=== PATIENT | female | born 1970 | race Two or more races ===

== ENCOUNTER → 2024-01-30 | Outpatient (CLI) | payer OTHER, SELFPAY ==
[2024-01-30 08:41] LABS: Basophils % (Auto) 0 % (0-2.5); Eosinophils # (Auto) 0.1 Thou/mm3 (0.0-0.5); Eosinophils % (Auto) 2 % (0-10); Hematocrit 39.9 % (36.0-46.0); Immature Granulocytes % (Auto) 1 % (0-0); Immature Granulocytes Auto 0.02 Thou/mm3 (0.00-0.00); Lymphocytes # (Auto) 0.4 Thou/mm3 (1.0-4.8); Lymphocytes % (Auto) 10 % (10-50); Mean Corpuscular HGB Conc 32.6 g/dl (31.0-37.0); Mean Corpuscular Volume 98 fL (80-100); Monocytes # (Auto) 0.4 Thou/mm3 (0.0-0.8); Monocytes % (Auto) 10 % (0-12); Neutrophils # (Auto) 2.7 Thou/mm3 (1.8-7.7); Neutrophils % (Auto) 76 % (37-80); Nucleated Red Blood Cell % 0 /100 WBC (0); Platelet Count 307 Thou/mm3 (140-440); RDW Standard Deviation 46.6 fL (36.4-46.3); Red Blood Count 4.06 Miln/mm3 (4.00-5.20); White Blood Count 3.5 Thou/mm3 (3.6-11.0)
[2024-01-30 09:03] LABS: T4 (Thyroxine) 4.7 mcg/dL (4.5-10.9)
[2024-01-30 09:05] LABS: Alanine Aminotransferase 57 U/L (10-49); Albumin, Serum 4.6 gm/dL (3.5-5.0); Albumin/Globulin Ratio 2.7 (1.2-2.2); Alkaline Phosphatase 123 U/L (46-116); Anion Gap 7 (7-16); Aspartate Amino Transferase 19 U/L (0-34); BUN/Creatinine Ratio 20 Ratio (12-20); Bilirubin,Total 0.4 mg/dL (0.3-1.2); Blood Urea Nitrogen 16 mg/dL (9-23); Calcium 9.6 mg/dL (8.3-10.6); Calcium (Corrected) 9.6 mg/dL (8.5-10.1); Carbon Dioxide 29.7 mMol/L (20.0-31.0); Cardiac Risk Estimate 3.3 RATIO (3.7-5.6); Chloride 106 mMol/L (98-107); Cholesterol 214 mg/dL (132-200); Creatinine (Component) 0.8 mg/dL (0.6-1.3); Globulin 1.7 gm/dL (2.3-3.5); Glucose 113 mg/dL (74-106); HDL Cholesterol 64 mg/dL (40-60); LDL Cholesterol,Calculated 128 mg/dL (0-130); Osmolality,Calculated 287 (275-295); Potassium 4.4 mMol/L (3.4-5.1); Sodium 143 mMol/L (136-145); Thyroid Stimulating Hormone 2.97 uIU/mL (0.55-4.78); Total Protein 6.3 gm/dL (5.7-8.2); Triglycerides 108 mg/dL (30-150); eGFR > 60 See Note
== END | disposition home or self-care (01) ==
LOC: COPL 07:03
PROVIDERS: PCP Family Medicine; Referring Provider Family Medicine; Visit Provider Family Medicine
DX: G35 Multiple sclerosis (principal); E03.9 Hypothyroidism, unspecified; E78.2 Mixed hyperlipidemia; R79.9 Abnormal finding of blood chemistry, unspecified
CPT/HCPCS: 36415; 80053; 80061; 84436; 84443; 85025

== ENCOUNTER → 2024-01-30 | Outpatient (CLI) | payer BC, OTHER, SELFPAY ==
[2024-01-30 11:32] LABS: Glucose Estimated Average 100 mg/dL (80-131); Hemoglobin A1C 5.1 % Hgb (4.8-6.0)
== END | disposition home or self-care (01) ==
LOC: COPL 10:27
PROVIDERS: PCP Family Medicine; Referring Provider Family Medicine; Visit Provider Family Medicine
DX: R73.01 Impaired fasting glucose (principal)
CPT/HCPCS: 36415; 83036

== ENCOUNTER 2024-04-25 04:49 | Emergency (ER) | payer BC, OTHER, SELFPAY ==
[2024-04-25 04:55] VITALS: BP 137/82; PULSE 73; RESP 20; TEMP 36.9; O2SAT 98
--- NOTE | 2024-04-25 04:58 | EKG_ITS ---
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
--- NOTE | 2024-04-25 05:12 | XR_ITS ---
Examination: Upright PA chest single view Technique: Upright PA chest single view Exam date and time: April 25, 2024 0518 hrs. Indications: Shortness of breath one week. Findings: Normal heart size Lungs are clear. The osseous structures are intact Impression: No active disease
--- NOTE | 2024-04-25 05:12 | XR_ITS ---
Examination: Abdomen sonogram, Limited Date and time of exam: April 25, 2024 0625 hrs. Indications: Onset epigastric pain and nausea today Technique: Real-time suarez scale transabdominal sonographic images of the upper abdomen obtained. Findings: 16 mm gallstone Gallbladder wall 0.3 cm Common bile duct 0.3 cm Pancreatic head 2.4 cm Liver 18.4 cm smooth contour no focal liver lesions Normal hepatopedal portal venous flow Patent IVC Impression: Cholelithiasis, negative for cholecystitis Moderate hepatomegaly
--- NOTE | 2024-04-25 05:13 | PD.EDRME ---
Rapid Medical Screening Exam [facility] Arrival date/time: 04/25/24 04:49 53F with history of MS and depression presents to ED with several weeks of intermittent RUE pain and CP w/o fall/trauma. Separately, patient has 1 day of RUQ/epigastric pain, N/V, and some SOB. Patient also has a slight cough. Patient denies RUE swelling. Chief Complaint: Shortness of Breath/Dyspnea Vital signs: Vital Signs Temperature 98.4 F 04/25/24 04:55 Pulse Rate 73 04/25/24 04:55 Respiratory Rate 20 04/25/24 04:55 Blood Pressure 137/82 H 04/25/24 04:55 Pulse Oximetry (%) 98 04/25/24 04:55 Oxygen Delivery Method Room Air 04/25/24 04:55
[2024-04-25] MEDS: ONDANSETRON ODT 4 MG TABRAP PO (05:52)
[2024-04-25 05:53] LABS: Collection Type, Urine Clean Catch; RBC,Urine 0 /hpf (0-3); WBC,Urine 0 /hpf (0-5)
[2024-04-25 06:13] LABS: Bacteria,Urine Rare; Bilirubin,Urine Negative (Negative); Blood,Urine Negative (Negative); Clarity,Urine Clear (Clear/Hazy); Color,Urine Yellow (Lt Yel-Yel); Culture Indicated,Urine Not Indicated; Glucose, Urine Negative (Negative); Ketones,Urine Negative (Negative); Leukocyte Esterase,Urine Negative (Negative); Nitrite,Urine Negative (Negative); PH,Urine 8.5 (5.0-7.0); Protein,Urine Trace (Neg - Trace); Specific Gravity,Urine 1.018 (1.001-1.035); Squamous Epithelial Cell,Urine 2 /hpf (0-5); Urobilinogen,Urine Negative mg/dL (0.0-1.0)
[2024-04-25 06:14] LABS: HCG Qualitative,Urine Negative
[2024-04-25 06:17] LABS: Basophils % (Auto) 0 % (0-2.5); Eosinophils # (Auto) 0.1 Thou/mm3 (0.0-0.5); Eosinophils % (Auto) 1 % (0-10); Hematocrit 38.9 % (36.0-46.0); Hemoglobin 13.4 g/dL (12.0-16.0); Immature Granulocytes % (Auto) 0 % (0-0); Immature Granulocytes Auto 0.02 Thou/mm3 (0.00-0.00); Lymphocytes # (Auto) 0.3 Thou/mm3 (1.0-4.8); Lymphocytes % (Auto) 6 % (10-50); Mean Corpuscular HGB Conc 34.4 g/dl (31.0-37.0); Mean Corpuscular Hemoglobin 32.3 pg (25.0-35.0); Mean Corpuscular Volume 94 fL (80-100); Monocytes # (Auto) 0.4 Thou/mm3 (0.0-0.8); Monocytes % (Auto) 8 % (0-12); Neutrophils # (Auto) 4.1 Thou/mm3 (1.8-7.7); Neutrophils % (Auto) 84 % (37-80); Nucleated Red Blood Cell % 0 /100 WBC (0); Platelet Count 299 Thou/mm3 (140-440); RDW Standard Deviation 43.8 fL (36.4-46.3); Red Blood Count 4.15 Miln/mm3 (4.00-5.20); White Blood Count 4.9 Thou/mm3 (3.6-11.0)
[2024-04-25 06:36] LABS: Amphetamine/Methamp Scrn,U Negative (Negative); Barbiturate Screen,Urine Negative (Negative); Benzodiazepines Screen,Urine Negative (Negative); Benzoylecgonine Screen, Ur Negative (Negative); Fentanyl Screen,Urine Negative (Negative); Opiate Screen,Urine Negative (Negative); THC Screen,Urine Negative (Negative)
[2024-04-25 06:40] LABS: Alanine Aminotransferase 32 U/L (10-49); Albumin, Serum 4.4 gm/dL (3.5-5.0); Albumin/Globulin Ratio 2.1 (1.2-2.2); Alkaline Phosphatase 101 U/L (46-116); Anion Gap 8 (7-16); Aspartate Amino Transferase 16 U/L (0-34); BUN/Creatinine Ratio 16 Ratio (12-20); Bilirubin,Total 0.5 mg/dL (0.3-1.2); Blood Urea Nitrogen 11 mg/dL (9-23); Calcium 9.7 mg/dL (8.3-10.6); Calcium (Corrected) 9.7 mg/dL (8.5-10.1); Carbon Dioxide 29.4 mMol/L (20.0-31.0); Chloride 105 mMol/L (98-107); Creatinine (Component) 0.7 mg/dL (0.6-1.3); Globulin 2.1 gm/dL (2.3-3.5); Glucose 127 mg/dL (74-106); Lipase 29 U/L (12-53); Osmolality,Calculated 284 (275-295); Potassium 3.9 mMol/L (3.4-5.1); Sodium 142 mMol/L (136-145); Total Protein 6.5 gm/dL (5.7-8.2); Troponin I < 0.002 ng/mL (0.0-0.045); eGFR > 60 See Note
[2024-04-25 07:25] VITALS: BP 127/77; PULSE 67; RESP 18; TEMP 36.5; O2SAT 97
--- NOTE | 2024-04-25 07:34 | PD.EDABDPN ---
ED Abdominal Pain RME/HPI General Chief Complaint: Shortness of Breath/Dyspnea Stated complaint: SOB, stomach ache nausea, dizzines Time seen by provider: 04/25/24 07:00 Arrival date/time: 04/25/24 0600 This is a 53-year-old female history of MS and depression presents to the emergency department with complaints of upper abdominal pain associated with mild nausea. Reports when the abdominal pain started she began experiencing mild dizziness and shortness of breath. She is unaware if she was having a mild exacerbation of her MS. Denies fever, chills rigors no nausea no vomiting no BRBPR. Source: patient Limitations: no limitations RME / HPI RME / HPI narrative: 04/25/24 04:49 53F with history of MS and depression presents to ED with several weeks of intermittent RUE pain and CP w/o fall/trauma. Separately, patient has 1 day of RUQ/epigastric pain, N/V, and some SOB. Patient also has a slight cough. Patient denies RUE swelling. Related Data Home Medications ?Medication ?Instructions ?Recorded ?Confirmed baclofen 20 mg tablet 20 mg PO BID multiple sclerosis #0 10/26/15 04/11/22 tabs carbamazepine 200 mg tablet 200 mg PO BID #0 tabs 10/26/15 04/11/22 (Tegretol) fingolimod 0.5 mg capsule (Gilenya) 0.5 cap PO HS ##0 10/26/15 04/11/22 atorvastatin 20 mg tablet 20 mg PO QDAY 04/06/22 04/11/22 bupropion HCl 150 mg 24 hr tablet, 150 mg PO QAM 04/06/22 04/11/22 extended release bupropion HCl 300 mg 24 hr tablet, 300 mg PO QAM 04/06/22 04/11/22 extended release conj estrogen-medroxyprogesterone 1 tab PO QDAY 04/06/22 04/11/22 0.3 mg-1.5 mg tablet (Prempro) linaclotide 290 mcg capsule 290 mcg PO QDAY 04/06/22 04/11/22 (Linzess) oxybutynin chloride 5 mg tablet 5 mg PO BID 04/06/22 04/11/22 Previous Rx's ?Medication ?Instructions ?Recorded ibuprofen 600 mg tablet 600 mg PO Q6H PRN pain #30 tabs 04/06/22 tamsulosin 0.4 mg capsule (Flomax) 0.4 mg PO QDAY #30 caps 04/06/22 Allergies Allergy/AdvReac Type Severity Reaction Status Date / Time No Known Allergies Allergy Verified 12/07/22 13:51 Review of Systems Review of Systems Systems Reviewed: All systems reviewed, normal except as documented Narrative Review of Systems: Gen: No fever, no chills, no weight loss EYES: No discharge, no visual changes, no pain HEENT: No ear pain, no congestion, no sore throat PULM: Mild shortness of breath, no cough, no congestion CV: Mild chest pain, no dyspnea on exertion, no palpitations GI: + nausea, no vomiting, no diarrhea, + epigastric pain, no constipation : No frequency, no urgency,? no dysuria Musc/skel: No joint pain, no back pain Skin: No rash? Psyc: No hallucinations, no depression Heme/Lymph: No easy bleeding or bruising tendencies Neuro: No weakness, no headache ED Exam Narrative Physical exam: 53-year-old female sitting up in [facility] in no apparent distress. General Limitations: Present no limitations General appearance: Present alert and in no apparent distress Head Head exam: Present atraumatic Eye Eye exam: Present normal appearance, PERRL and EOMI ENT ENT exam: Present normal exam, normal oropharynx and mucous membranes moist Neck Neck exam: Present normal inspection, full ROM and trachea midline Chest Chest inspection: Present normal inspection and symmetric chest wall rise Respiratory Respiratory exam: Present normal lung sounds bilaterally Cardiovascular Cardiovascular exam: Present regular rate, normal rhythm and normal heart sounds Abdominal Exam Abdominal exam: Present soft and normal bowel sounds Extremities Exam Extremities exam: Present normal inspection and full ROM Back Exam Back exam: Present normal inspection and full ROM Neurological Exam Neurological exam: Present alert, oriented X3 and CN II-XII intact Psychiatric Psychiatric exam: Present normal affect and normal mood Skin Skin exam: Present warm, dry, intact and normal color Course Quality Measures none Orders Category Date Time Status Bedside COVID-19 Antigen Test NOW Care 04/25/24 05:17 Active Bedside Influenza A&B Antigen Test NOW Care 04/25/24 05:17 Active EKG (ED ONLY) *Do not use* NOW Care 04/25/24 04:58 Completed EKG (ED Only) Stat Exams 04/25/24 04:58 Draft US gall bladder Stat Exams 04/25/24 05:12 Completed XR chest 1V portable Stat Exams 04/25/24 05:12 Completed CBC Stat Lab 04/25/24 06:00 Completed CMP [Comprehensive Metabolic Panel] Stat Lab 04/25/24 06:00 Completed Drug Screen,Urine Stat Lab 04/25/24 05:47 Completed HCG Qualitative,Urine Stat Lab 04/25/24 05:47 Completed Lipase Stat Lab 04/25/24 06:00 Completed Troponin I Stat Lab 04/25/24 06:00 Completed Urinalysis, C/S if Indicated Stat Lab 04/25/24 05:47 Completed Ondansetron Odt [Zofran Odt] Med 04/25/24 05:12 Discontinued 4 mg PO X1 ONE Vital Signs Vital signs: Vital Signs Temperature 98.4 F 04/25/24 04:55 Pulse Rate 73 04/25/24 04:55 Respiratory Rate 20 04/25/24 04:55 Blood Pressure 137/82 H 04/25/24 04:55 Pulse Oximetry (%) 98 04/25/24 04:55 Oxygen Delivery Method Room Air 04/25/24 04:55 Abdominal Pain MDM MDM Narrative MDM Narrative:: This is a 53-year-old female presents to the emergency department with multiple complaints. Mainly having upper abdominal pain with mild nausea which led to have some mild shortness of breath and chest pain. Previous provider ordered general labs, chest x-ray, EKG. Which all were reassuring. No signs of acute leukocytosis, anemia. CMP reassuring no electrolyte imbalance no acute renal failure. No transaminitis T. bili normal. Chest x-ray normal. Troponin negative. Patient was given 1 Zofran prior to my reevaluation. Patient sitting up in [place] in no acute distress reports improving tremendously no abdominal pain. Patient is seen to the Emergency Department and evaluated.Patient is stable for discharge no anemia, no sepsis, no infection, will DC with pain control, and follow-up with on outpatient basis. There is no acute reason that warrant admission patient at this time Patient appears non-toxic and VSS, Taking PO fluids. No tachycardia out of proportion, no tachypnea, no dyspnea/SOB. Will Discharge patient home with close follow up with PMD. Patient informed about red flags regarding a possible need to seek medical attention. Patient data External records reviewed:: [facility] previous records Clinical information provided by:: patient Social determinants that could affect healthcare access:: none Patient has the following chronic illnesses:: MS, depression, chronic pain, constipation, hyperlipidemia, How is presenting disease/condition affected by chronic disease/condition?: exacerbated by Evaluation data The following diagnostics were reviewed and interpreted by me:: lab results, radiology exam(s) and EKG tracing(s) Lab and/or radiology exams considered but not ordered:: No Interpretation Summary: See above Examination: Abdomen sonogram, Limited Date and time of exam: April 25, 2024 0625 hrs. Indications: Onset epigastric pain and nausea today Technique: Real-time suarez scale transabdominal sonographic images of the upper abdomen obtained. Findings: 16 mm gallstone Gallbladder wall 0.3 cm Common bile duct 0.3 cm Pancreatic head 2.4 cm Liver 18.4 cm smooth contour no focal liver lesions Normal hepatopedal portal venous flow Patent IVC Impression: Cholelithiasis, negative for cholecystitis Moderate hepatomegaly Examination: Upright PA chest single view Technique: Upright PA chest single view Exam date and time: April 25, 2024 0518 hrs. Indications: Shortness of breath one week. Findings: Normal heart size Lungs are clear. The osseous structures are intact Impression: No active disease Medications / Prescriptions Medications or Prescriptions considered but not ordered:: No Medication administrations:: Medication Administration History Discontinued Medications Ondansetron HCl (Ondansetron Odt 4 Mg Tabrap) 4 mg PO X1 ONE; Protocol Stop: 04/25/24 05:13 Last Admin: 04/25/24 05:52 Dose: 4 mg Documented By: SF All medications administered and effective Consultations Consultation(s) initiated? (list below): No Diagnosis Differential diagnosis abdominal pain: abdominal pain, calculus of kidney, constipation, gastroenteritis, pancreatitis and other (Pneumonia, URI, chest pain) Most likely diagnosis given after review of the tests above:: Cholelithiasis, Admission Indicated Admission indicated?: not indicated Admission Request Was there a request for admission?: No Disposition Plan Disposition Plan: Discharge Discharge Attestation Discharge Attestation: The patient and all family members were given an opportunity to ask questions and understood the discharge instructions. Discharge instructions specifically effects, indications for sooner follow up or return to the emergency department, and the expected course of current diagnosis. Patient condition: Stable Discharge Plan Plan Patient Disposition: HOME (Self Care) Patient condition on transfer: Stable Prescriptions/Referrals Prescriptions/Med Rec: No Action baclofen 20 MG tablet 20 mg PO BID Qty: 0 carbamazepine [Tegretol] 200 MG tablet 200 mg PO BID Qty: 0 fingolimod [Gilenya] 0.5 MG capsule 0.5 cap PO HS Qty: 0 atorvastatin 20 mg tablet 20 mg PO QDAY Patient Comments: TAKE 1 TABLET BY MOUTH EVERY DAY FOR 90 DAYS 90 DAYS oxybutynin chloride 5 mg tablet 5 mg PO BID Patient Comments: TAKE 1 TABLET BY MOUTH TWICE A DAY bupropion HCl 300 mg tablet extended release 24 hr 300 mg PO QAM Patient Comments: TAKE 1 TABLET BY MOUTH EVERY DAY IN THE MORNING bupropion HCl 150 mg tablet extended release 24 hr 150 mg PO QAM Patient Comments: TAKE 1 TABLET BY MOUTH EVERY DAY IN THE MORNING Prempro 0.3-1.5 mg tablet 1 tab PO QDAY Patient Comments: TAKE 1 TABLET BY MOUTH EVERY DAY Linzess 290 mcg capsule 290 mcg PO QDAY Patient Comments: TAKE 1 CAPSULE BY MOUTH AT LEAST 30 MINUTES BEFORE THE FIRST MEAL OF THE DAY IN EMPTY STOMACH ibuprofen 600 mg tablet 600 mg PO Q6H PRN (Reason: pain) Qty: 30 0RF tamsulosin [Flomax] 0.4 mg capsule 0.4 mg PO QDAY Qty: 30 0RF Referrals: Virgil Tavares MD [Primary Care Provider] - In 1 week Problem List Clinical Impression: Cholelithiasis Patient/Caregiver Discharge Instructions Discharge Activity: activity as tolerated Education Materials: ED Gallstones with Biliary Colic Additional Instructions: It is very important that you follow-up with your primary doctor in 2 days.. Increase water intake. You do have a gallstone. You need to make sure you do not eat fried food, fried eggs. You might need a outpatient general surgery referral if the pain worsens. Return to the emergency department is any worsening symptoms change in condition Print Language: Slovak Stand Alone Forms: Gloria Award Info., Patient Portal Info Letter PA/STUDIO OPERATOR Supervising Physician YANIRA/CAPRICE Supervising Physician: Dr Uribe
== END 2024-04-25 07:45 | disposition home or self-care (01) ==
PROVIDERS: Physician Assistant; Emergency Provider Emergency Medicine; PCP Family Medicine
DX: K80.20 Calculus of gallbladder without cholecystitis without obstruction (principal); R16.0 Hepatomegaly, not elsewhere classified; R06.02 Shortness of breath
CPT/HCPCS: 36415; 71045; 76705; 80053; 80307; 81001; 81025; 83690; 84484; 85025; 93005; 99284; Q0162

== ENCOUNTER 2024-06-02 03:27 | Emergency (ER) | payer BC, OTHER, SELFPAY ==
[2024-06-02 03:28] VITALS: BMI 27.4
--- NOTE | 2024-06-02 03:32 | EKG_ITS ---
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
--- NOTE | 2024-06-02 03:33 | PD.EDRME ---
Rapid Medical Screening Exam RME Arrival date/time: 06/02/24 03:27 54 year old female present to ED for c/o n/v/d, recent return from [place] I have greeted and performed a focused initial assessment of this patient. A comprehensive ED assessment and evaluation of the patient, analysis of all test results, and completion of the medical decision making process will be conducted by additional ED providers. Chief Complaint: Nausea/Vomiting/Diarrhea Time Seen by Provider: 06/02/24 03:32
[2024-06-02 03:43] VITALS: BP 137/67; PULSE 79; RESP 19; TEMP 36.6; O2SAT 98
[2024-06-02] MEDS: ONDANSETRON ODT 4 MG TABRAP PO (03:53)
--- NOTE | 2024-06-02 04:42 | PC.NURSE ---
Initial contact with pt. Brought to [facility] #6 via w/c with c/o n/v/d. Son and mom has same symptoms.
[2024-06-02 04:44] VITALS: BP 136/68; PULSE 77; RESP 22; TEMP 36.6; O2SAT 100
[2024-06-02 04:45] LABS: Basophils % (Auto) 0 % (0-2.5); Eosinophils % (Auto) 0 % (0-10); Hematocrit 42.5 % (36.0-46.0); Hemoglobin 14.7 g/dL (12.0-16.0); Immature Granulocytes % (Auto) 0 % (0-0); Immature Granulocytes Auto 0.04 Thou/mm3 (0.00-0.00); Lymphocytes # (Auto) 0.3 Thou/mm3 (1.0-4.8); Lymphocytes % (Auto) 3 % (10-50); Mean Corpuscular HGB Conc 34.6 g/dl (31.0-37.0); Mean Corpuscular Hemoglobin 32.7 pg (25.0-35.0); Mean Corpuscular Volume 94 fL (80-100); Monocytes # (Auto) 0.3 Thou/mm3 (0.0-0.8); Monocytes % (Auto) 3 % (0-12); Neutrophils # (Auto) 9.3 Thou/mm3 (1.8-7.7); Neutrophils % (Auto) 93 % (37-80); Nucleated Red Blood Cell % 0 /100 WBC (0); Platelet Count 332 Thou/mm3 (140-440); RDW Standard Deviation 44.1 fL (36.4-46.3); White Blood Count 9.9 Thou/mm3 (3.6-11.0)
[2024-06-02 05:16] LABS: Alanine Aminotransferase 82 U/L (10-49); Albumin/Globulin Ratio 2.3 (1.2-2.2); Alkaline Phosphatase 107 U/L (46-116); Anion Gap 10 (7-16); Aspartate Amino Transferase 65 U/L (0-34); BUN/Creatinine Ratio 17 Ratio (12-20); Bilirubin,Total 0.7 mg/dL (0.3-1.2); Blood Urea Nitrogen 17 mg/dL (9-23); Carbon Dioxide 27.2 mMol/L (20.0-31.0); Chloride 108 mMol/L (98-107); Estimated Creatinine Clearance 62.8 mL/min (>60); Globulin 2.2 gm/dL (2.3-3.5); Glucose 141 mg/dL (74-106); Lipase 35 U/L (12-53); Osmolality,Calculated 292 (275-295); Potassium 3.8 mMol/L (3.4-5.1); Sodium 145 mMol/L (136-145); Total Protein 7.2 gm/dL (5.7-8.2); Troponin I < 0.002 ng/mL (0.0-0.045); eGFR > 60 See Note
[2024-06-02] MEDS: SODIUM CHLORIDE 0.9% 1000 ML 1,000 ML 999 ML IV ×2 (05:17→07:29)
[2024-06-02] MEDS: ONDANSETRON INJ 2 MG/ML INJ 2 ML 4 MG IV (05:17)
[2024-06-02 06:00] VITALS: BP 143/69; PULSE 81; RESP 24; O2SAT 100
--- NOTE | 2024-06-02 06:36 | EDNOTE_ITS ---
Nausea/Vomit./Diarrhea-RME/HPI General Chief complaint: Nausea/Vomiting/Diarrhea Stated complaint: N/V, DIARRHEA Time Seen by Provider: 06/02/24 03:32 Arrival date/time: 06/02/24 03:27 RME / HPI RME / HPI Narrative: 06/02/24 03:27 54 year old female present to ED for c/o n/v/d, recent return [place] I have greeted and performed a focused initial assessment of this patient. A comprehensive ED assessment and evaluation of the patient, analysis of all test results, and completion of the medical decision making process will be conducted by additional ED providers. DR. IBARRA MAIN ED EVALUATION: 54 year female with past medical history significant for MS and depression presents to the Emergency Department with complaints of nausea, vomiting and diarrhea onset yesterday afternoon. Symptoms are mild to moderate. Patient also complains of associated abdominal pain when vomiting. No chest pain, fevers, chills, dysuria, or other symptoms at this time. Patient denies any tobacco, alcohol, or substance use. Related Data Home Medications ?Medication ?Instructions ?Recorded ?Confirmed baclofen 20 mg tablet 20 mg PO BID multiple sclero sis #0 10/26/15 04/11/22 tabs carbamazepine 200 mg tablet 200 mg PO BID #0 tabs 10/0504/11/22 (Tegretol) fingolimod 0.5 mg capsule (Gilenya) 0.5 cap PO HS ##0 10/26/15 04/11/22 atorvastatin 20 mg tablet 20 mg PO QDAY 04/06/2204/11 bupropion HCl 150 mg 24 hr tablet, 150 mg PO QAM 04/0604/11/22 extended release bupropion HCl 300 mg 24 hr tablet, 300 mg PO QAM 04/0604/11/22 extended release conj estrogen-medroxyprogesterone 1 tab PO QDAY 04/11/22 0.3 mg-1.5 mg tablet (Prempro) linaclotide 290 mcg capsule 290 mcg PO QDAY 04/06/22 0 04/11/22 (Linzess) oxybutynin chloride 5 mg tablet 5 mg PO BID 04/06/22 0 04/11/22 Previous Rx's ?Medication ?Instructions ?Recorded ibuprofen 600 mg tablet 600 mg PO Q6H PRN pain #30 t abs 04/06/22 tamsulosin 0.4 mg capsule (Flomax) 0.4 mg PO QDAY #30 caps 04/06/22 Allergies Allergy/AdvReac Type Severity Reaction Status Date / Time No Known Allergies Allergy Verified 12/07/22 13:51 Review of Systems Review of Systems Systems Reviewed: All systems reviewed, normal except as documented Past Medical History Past Medical History NEUROLOGIC: Positive Neurological Disorders and Multiple Sclerosis RESPIRATORY: Positive Pneumonia Surgical History SURGICAL: Positive Section Social History SMOKING STATUS: Never smoker SUBSTANCE USE: does not use ALCOHOL: Never ED Exam Narrative Physical exam: GENERAL APPEARANCE: alert and oriented x 4, well-developed, well-nourished, no acute distress VITALS: All vitals were reviewed and the pulse ox is 99% on room air, which is normal according to my interpretation. HEENT: Normocephalic, atraumatic; pupils equal, round, reactive to light; EOMI; mucous membranes pink, moist; oropharynx clear NECK: Supple LUNGS: CTABL; no wheezes, no rales, no rhonchi HEART: Regular rate, regular rhythm; normal S1, S2; no murmurs ABDOMEN: non distended; normal BS; soft, no tenderness, no guarding, no rebound; no masses, no organomegaly, no hernia BACK: no CVA tenderness EXTREMITIES: atraumatic; no edema NEUROLOGIC: awake; alert and oriented x4; cranial nerves II-XII grossly intact; no focal sensory or motor deficits PSYCHIATRIC: appropriate mood and affect SKIN: warm, dry, normal color; no rashes Course Quality Measures none Orders Category Date Time Status EKG (ED ONLY) *Do not use* NOW Care 06/02/24 03:32 Completed IV [Insert IV] STAT Care 06/02/24 03:32 Completed EKG (ED Only) Stat Exams 06/02/24 03:32 Ordered CBC Stat Lab 06/02/24 04:20 Completed CMP [Comprehensive Metabolic Panel] Stat Lab 06/02/24 04:20 Completed Lipase Stat Lab 06/02/24 04:20 Completed Troponin I Stat Lab 06/02/24 04:20 Completed UA [Urinalysis] Stat Lab 06/02/24 06:45 Completed LORazepam [Ativan Inj] Med 06/02/24 06:51 Discontinued 1 mg IVP X1 ONE Morphine Inj Med 06/02/24 06:51 Discontinued 5 mg IVP X1 ONE Ondansetron Inj [Zofran Inj] Med 06/02/24 03:32 Discontinued 4 mg IV X1 ONE Ondansetron Odt [Zofran Odt] Med 06/02/24 03:35 Discontinued 4 mg PO X1 ONE Sodium Chloride 0.9% 1000 ml [Ns] 1,000 ml Med 06/02/24 03:32 Discontinued IV 999 mls/hr Sodium Chloride 0.9% 1000 ml [Ns] 1,000 ml Med 06/02/24 06:51 Discontinued IV 999 mls/hr Vital Signs Vital signs: Vital Signs Temperature 97.8 F 06/02/24 03:43 Pulse Rate 79 06/02/24 03:43 Respiratory Rate 19 06/02/24 03:43 Blood Pressure 137/67 H 06/02/24 03:43 Pulse Oximetry (%) 98 06/02/24 03:43 Oxygen Delivery Method Room Air 06/02/24 03:43 Nausea/Vomiting/Diarrhea MDM Narrative MDM Narrative:: Julia Montiel am scribing for and in the presence of Dr. Ibarra. Patient data External records reviewed:: [facility] previous records (Reviewed last ED visit dated 04/25/24, discharged with the following: Cholelithiasis) Clinical information provided by:: patient Social determinants that could affect healthcare access:: none Patient has the following chronic illnesses:: MS and depression How is presenting disease/condition affected by chronic disease/condition?: uneffected by Evaluation data The following diagnostics were reviewed and interpreted by me:: lab results Lab and/or radiology exams considered but not ordered:: none Interpretation Summary: No acute findings. Medications / Prescriptions Medications / Prescriptions considered but not ordered:: none Medication administrations:: Medication Administration History Discontinued Medications Sodium Chloride (Ns) 1,000 mls @ 999 mls/hr IV .Q1H1M ONE Stop: 06/02/24 04:32 Last Infusion: 06/02/24 07:33 Dose: Infused Documented By: Admin: 06/02/24 05:17 Dose: 999 mls/hr Documented By: GERARDO Sodium Chloride (Ns) 1,000 mls @ 999 mls/hr IV .Q1H1M ONE Stop: 06/02/24 07:51 Last Infusion: 06/02/24 08:39 Dose: Infused Documented By: Admin: 06/02/24 07:29 Dose: 999 mls/hr Documented By: ALISA Lorazepam (Lorazepam 2 Mg/Ml Vial) 1 mg IVP X1 ONE Stop: 06/02/24 06:52 Last Admin: 06/02/24 07:30 Dose: 1 mg Documented By: DB Morphine Sulfate (Morphine Sulf Inj 10 Mg/Ml Vial) 5 mg IVP X1 ONE Stop: 06/02/24 06:52 Last Admin: 06/02/24 07:32 Dose: 5 mg Documented By: ALISA Ondansetron HCl (Ondansetron Inj 2 Mg/Ml Inj 2 Ml) 4 mg IV X1 ONE; Protocol Stop: 06/02/24 03:33 Last Admin: 06/02/24 05:17 Dose: 4 mg Documented By: GERARDO Ondansetron HCl (Ondansetron Odt 4 Mg Tabrap) 4 mg PO X1 ONE; Protocol Stop: 06/02/24 03:36 Last Admin: 06/02/24 03:53 Dose: 4 mg Documented By: MARIO see above Consultations Consultation(s) initiated? (list below): No Diagnosis Nausea Differential Diagnosis: traveler's diarrhea, food poisoning, gastroenteritis and dehydration Most likely diagnosis given after review of the tests above:: Abdominal pain Gastroenteritis Diarrhea Admission Indicated Admission indicated?: not indicated Admission Request Was there a request for admission?: No Disposition Plan Disposition Plan: Discharge Discharge Attestation Discharge Attestation: The patient and all family members were given an opportunity to ask questions and understood the discharge instructions. Discharge instructions specifically effects, indications for sooner follow up or return to the emergency department, and the expected course of current diagnosis. Patient condition: Stable Discharge Plan Plan Patient Disposition: HOME (Self Care) Prescriptions/Referrals Prescriptions/Med Rec: No Action baclofen 20 MG tablet 20 mg PO BID Qty: 0 carbamazepine [Tegretol] 200 MG tablet 200 mg PO BID Qty: 0 fingolimod [Gilenya] 0.5 MG capsule 0.5 cap PO HS Qty: 0 atorvastatin 20 mg tablet 20 mg PO QDAY Patient Comments: TAKE 1 TABLET BY MOUTH EVERY DAY FOR 90 DAYS 90 DAYS oxybutynin chloride 5 mg tablet 5 mg PO BID Patient Comments: TAKE 1 TABLET BY MOUTH TWICE A DAY bupropion HCl 300 mg tablet extended release 24 hr 300 mg PO QAM Patient Comments: TAKE 1 TABLET BY MOUTH EVERY DAY IN THE MORNING bupropion HCl 150 mg tablet extended release 24 hr 150 mg PO QAM Patient Comments: TAKE 1 TABLET BY MOUTH EVERY DAY IN THE MORNING Prempro 0.3-1.5 mg tablet 1 tab PO QDAY Patient Comments: TAKE 1 TABLET BY MOUTH EVERY DAY Linzess 290 mcg capsule 290 mcg PO QDAY Patient Comments: TAKE 1 CAPSULE BY MOUTH AT LEAST 30 MINUTES BEFORE THE FIRST MEAL OF THE DAY IN EMPTY STOMACH ibuprofen 600 mg tablet 600 mg PO Q6H PRN (Reason: pain) Qty: 30 0RF tamsulosin [Flomax] 0.4 mg capsule 0.4 mg PO QDAY Qty: 30 0RF Referrals: No Primary/Family,Physician [Primary Care Provider] - In 1 week Problem List Clinical Impression: Abdominal pain, Gastroenteritis, Diarrhea Patient/Caregiver Discharge Instructions Education Materials: ED Gastroenteritis, Viral (Adult) Print Language: Amharic Stand Alone Forms: Gloria Award Info., Patient Portal Info Letter
--- NOTE | 2024-06-02 06:49 | PC.NURSE ---
Dr. Bonner in to see pt.
[2024-06-02 07:03] LABS: Collection Type, Urine Voided
[2024-06-02 07:28] LABS: Bilirubin,Urine Negative (Negative); Blood,Urine Negative (Negative); Clarity,Urine Clear (Clear/Hazy); Color,Urine Yellow (Lt Yel-Yel); Glucose, Urine Negative (Negative); Ketones,Urine Negative (Negative); Leukocyte Esterase,Urine Negative (Negative); Nitrite,Urine Negative (Negative); PH,Urine 8.5 (5.0-7.0); Protein,Urine 1+ (Neg - Trace); RBC,Urine 2 /hpf (0-3); Specific Gravity,Urine 1.025 (1.001-1.035); Squamous Epithelial Cell,Urine 1 /hpf (0-5); Urobilinogen,Urine Negative mg/dL (0.0-1.0); WBC,Urine 1 /hpf (0-5)
[2024-06-02] MEDS: LORazepam 2 MG/ML VIAL 1 MG IVP (07:30)
[2024-06-02] MEDS: MORPHINE SULF INJ 10 MG/ML VIAL 5 MG IVP (07:32)
[2024-06-02 07:46] VITALS: BP 146/68; PULSE 95; RESP 17; TEMP 37.8; O2SAT 96
[2024-06-02 09:57] VITALS: BP 126/66; PULSE 90; RESP 18; TEMP 37.1; O2SAT 98
[2024-06-02 10:20] VITALS: BP 145/67; PULSE 88; RESP 16; TEMP 36.7; O2SAT 99
== END 2024-06-02 10:21 | disposition home or self-care (01) ==
PROVIDERS: Physician Assistant; Emergency Provider Emergency Medicine
DX: K52.9 Noninfective gastroenteritis and colitis, unspecified (principal); R94.31 Abnormal electrocardiogram [ECG] [EKG]
CPT/HCPCS: 36415; 80053; 81001; 83690; 84484; 85025; 93005; 96360; 96361; 99284; J2060; J2270; J2405; J7030; Q0162

== ENCOUNTER 2024-07-02 14:49 | Outpatient (AMB) | payer BC, OTHER, SELFPAY ==
[2024-07-02 15:18] VITALS: BP 136/74; PULSE 80; RESP 16; TEMP 36.6; O2SAT 97; BMI 28.1
--- NOTE | 2024-07-02 15:18 | AMB.GYNCLNOT ---
Vital Signs 07/02/24 15:18 Height 1.63 m Height Method Measured Weight 74.446 kg Weight Measurement Method Standing Scale BMI 28.1 BP 136/74 H Blood Pressure Source Automatic Cuff Blood Pressure Location Left Upper Arm Position Sitting Respiration 16 Pulse 80 Pulse Source Monitor Temp 98 F Temp Source Oral Pulse Oximetry (%) 97 Oxygen Delivery Method Room Air Allergies/Home Meds Allergies & Medications Allergies No Known Allergies Allergy (Verified 07/02/24 15:20) Medication Reconciliation baclofen 20 mg tablet 20 mg PO BID multiple sclerosis #0 tabs 10/26/15 [History Confirmed 07/02/24] carbamazepine 200 mg tablet (Tegretol) 200 mg PO BID #0 tabs 10/26/15 [History Confirmed 07/02/24] fingolimod 0.5 mg capsule (Gilenya) 0.5 cap PO HS ##0 10/26/15 [History Confirmed 07/02/24] atorvastatin 20 mg tablet 20 mg PO QDAY 04/06/22 [History Confirmed 07/02/24] bupropion HCl 150 mg 24 hr tablet, extended release 150 mg PO QAM 04/06/22 [History Confirmed 07/02/24] bupropion HCl 300 mg 24 hr tablet, extended release 300 mg PO QAM 04/06/22 [History Confirmed 07/02/24] conj estrogen-medroxyprogesterone 0.3 mg-1.5 mg tablet (Prempro) 1 tab PO QDAY 04/06/22 [History Confirmed 07/02/24] ibuprofen 600 mg tablet 600 mg PO Q6H PRN pain #30 tabs 04/06/22 [Rx Confirmed 07/02/24] linaclotide 290 mcg capsule (Linzess) 290 mcg PO QDAY 04/06/22 [History Confirmed 07/02/24] oxybutynin chloride 5 mg tablet 5 mg PO BID 04/06/22 [History Confirmed 07/02/24] tamsulosin 0.4 mg capsule (Flomax) 0.4 mg PO QDAY #30 caps 04/06/22 [Rx Confirmed 07/02/24] Intake Visit Data Collection New Patient or Established: Established Patient (seen at [facility] within 3 years) Reason for Visit:: Gynecologic care and pap smear, difficulty losing weight, menopausal symptoms including hot flashes and night hunger, urinary incontinence Seen by Clinical Staff ONLY (RN/MA): No Family Preservation Worker Required: No Do You Feel Safe at Home: Yes Authorities Contacted: N/A PCP or OBGYN visit in last 3 months: Yes Hx Now: No Are you currently on any form of Control: No Pain Present Currently: No Pain Scale Used: Salgado-Hunt/Numerical Pain scale:: 0 Smoking Status Smoking Status: Never smoker 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 1. Little interest or pleasure in doing things: not at all 2. Feeling down, depressed, or hopeless: not at all Total score: 0 Depression screen completed yes Social History Living Situation History Marital Status: Lives With: Family Housing: House Housing Other:: Pt lives w/ Tobacco History Smoking Status: Never smoker Alcohol History Alcohol Intake: Never Alcohol Intake Frequency: holidays/special occasions only Domestic Abuse History Do You Feel Safe at Home: Yes Past Medical History Past Medical History Have you ever been diagnosed with any of the following: Neurological Problems Multiple Sclerosis: Yes Cardiology Problems Congestive Heart Failure: No Respiratory Problems Chronic Obstructive Pulmonary Disease (COPD): No Asthma: No Pneumonia: Yes Genital/Urinary Problems Renal Disease: No Reproductive Problems Pelvic Inflammatory Disease: No Endocrine Problems Diabetes Mellitus Type 1: No Diabetes Mellitus Type 2: No Blood Problems Sickle Cell Disease: No History of Present Illness HPI Lisandra Rianna Vasquez is a 54-year-old menopausal female presenting for a pap smear and gynecologic care on referral from her PCP's office. Her chief complaints include difficulty losing weight, menopausal symptoms, and urinary incontinence. The patient reports experiencing menopause at age 50. She has gained significant weight, which she attributes partly to her medications. She describes getting hungry in the middle of the night, around midnight, despite not eating excessively. The patient tried hormone therapy briefly but discontinued due to weight gain. She currently takes a supplement containing black cohosh purchased from [employer] to manage her menopausal symptoms. Ms. Vasquez also complains of urinary incontinence, which she experiences all the time and attributes to her multiple sclerosis (MS). She reports having constant urinary issues, describing it as I'll pee a little bit, pee a little bit, and then sometimes I go home and then it'll all come out. This incontinence is impacting her daily life, and she has been referred to a urologist at [facility] for further evaluation. Additionally, the patient reports severe constipation, stating she can go up to a week or longer without a bowel movement if she doesn't take medication. She is currently taking Linzess to manage this issue. The patient's last pap smear was 3 years ago, though the records are not currently available. Her obstetric history includes 3 pregnancies with 3 full-term deliveries (2 vaginal and 1 ). 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 Obstetric History - GTPAL: G3 T3 L3 - history: - 3 full-term deliveries - 2 vaginal deliveries - 1 section Medical History - Depression, currently being treated - Multiple sclerosis - Menopause onset at age 50 - Urinary incontinence associated with multiple sclerosis - Chronic constipation requiring medication Surgical History - section (1 of 3 deliveries) - Vaginal deliveries (2 of 3 deliveries) Medications and Supplements - Celexa - For depression - Wellbutrin - Baclofen - Ingrezza - Linzess - For constipation - Black cohosh supplement - Helps with hot flashes - Wild yam supplement - Black rafael supplement Social History - Occupation: 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 HEENT: Positive for hot flashes. Gastrointestinal: Positive for increased appetite at night. Genitourinary: Positive for urinary incontinence. Musculoskeletal: Positive for difficulty losing weight. Endocrine: Positive for menopausal symptoms. Psychiatric: Positive for depression. Exam General General Appearance: alert, in no apparent distress and healthy appearing Head Head exam: atraumatic Neck Neck exam: Present normal inspection and trachea midline Chest Chest inspection: Present normal inspection and symmetric chest wall rise External exam: Present normal external exam; Absent tenderness Neuro Neurological exam: Present oriented X3 Psych Psychiatric exam: Present normal affect and normal mood Assessment & Plan Diagnosis / Problem List (1) Vasomotor symptoms due to menopause: Status: Acute (2) Abnormal weight gain: Status: Acute (3) Encounter for screening for other suspected endocrine disorder: Status: Acute (4) Encounter for screening for malignant neoplasm of cervix: Status: Acute (5) Encounter for gynecological examination (general) (routine) without abnormal findings: Status: Acute (6) Other specified urinary incontinence: Status: Acute (7) Constipation, unspecified: Status: Acute (8) Multiple sclerosis: Status: Inactive (9) Other recurrent depressive disorders: Status: Acute Plan Rianna Vasquez, a 54-year-old menopausal female with a history of multiple sclerosis, presents for gynecologic care and pap smear, complaining of difficulty losing weight and menopausal symptoms. Menopausal symptoms Assessment: Patient reports significant menopausal symptoms, including hot flashes and weight gain. She reached menopause at age 50. Previous attempts at hormone therapy resulted in weight gain. Currently using an [id number] supplement containing black cohosh for symptom management. Given the patient's concerns and symptoms, further evaluation of hormonal status is warranted to guide appropriate management. Plan: - Order comprehensive hormone panel to assess ovarian and regulatory hormones - Consider transdermal hormone replacement therapy pending lab results - Continue current [id number] black cohosh supplement - Educate patient on potential benefits of transdermal hormone therapy vs. oral formulations - Schedule follow-up to review lab results and discuss hormone replacement options Gynecological health maintenance Assessment: Patient's last pap smear was 3 years ago, with no records available. Current guidelines recommend pap smears every 5 years for patients with normal results. No recent pelvic ultrasound has been performed to assess uterine and ovarian health. Plan: - Perform pap smear during today's visit - Order pelvic ultrasound to evaluate uterus and ovaries - Review pap smear and ultrasound results at follow-up visit - Educate patient on current screening guidelines for cervical cancer Urinary incontinence Assessment: Patient reports constant urinary incontinence, which may be related to her multiple sclerosis. She has been referred to a urologist at [facility] for further evaluation. Plan: - Encourage patient to follow through with urology referral - Educate patient on potential for sacral nerve stimulation study and tailored treatment options - Follow up on urology consultation results at next visit Constipation Assessment: Patient reports severe constipation, stating she can go up to a week or longer without a bowel movement. Currently managed with Linzess. Plan: - Continue Linzess as prescribed for constipation management - Assess efficacy of current regimen at follow-up visit Multiple sclerosis Assessment: Patient has a history of multiple sclerosis, currently managed by Dr. Pimentel at [facility]. Patient transitioned care from local neurologist due to scheduling difficulties and now maintains care via telemedicine. Plan: - Encourage continued follow-up with [facility] neurologist for MS management - Coordinate care with neurology as needed, particularly regarding urinary symptoms Depression Assessment: Patient is currently on Celexa and Wellbutrin for depression management. No acute concerns reported during this visit. Plan: - Continue current antidepressant regimen: Celexa and Wellbutrin - Monitor for any changes in mood or side effects at follow-up visits Office Procedures OB Clinic LOC & Office Proc's Nursing/Assessment Patient Status: Established Patient OB Clinic Nursing Assessment: Medication Reconciliation, Update PMH in EMR and Vital Signs OB Clinic Coordination of Care: Complex Care and Chronic Disease 1-5, Consent,records obtained, informed consent, Education Simp Pt/Fam, Lab and Imaging orders, Results/Orders obtained and Staff clarify orders Miscellaneous Interventions: Pelvic/Pap Smear Set up Established Patient Charge Established Patient Point Assignment: 125 Established Patient Point Charge: EP Level 4 (120-155) In Clinic Procedures Pap Smear: Yes CONTACT LENS BLOCKER AND CUTTER: Papsmear Pap Smear Procedure Chaparone in room during procedure?: Yes Papsmear completed: yes
== END 2024-07-02 15:28 | disposition home or self-care (01) ==
LOC: HODSOBC 14:49
PROVIDERS: PCP Registered Nurse; Referring Provider Registered Nurse; Supervising Provider Obstetrics & Gynecology; Visit Provider Obstetrics & Gynecology
DX: Z01.419 Encounter for gynecological examination (general) (routine) without abnormal findings (principal); N95.1 Menopausal and female climacteric states; R23.2 Flushing; G35 Multiple sclerosis; K59.00 Constipation, unspecified; R32 Unspecified urinary incontinence; F33.9 Major depressive disorder, recurrent, unspecified; R63.5 Abnormal weight gain; Z68.28 Body mass index [BMI] 28.0-28.9, adult; Z13.29 Encounter for screening for other suspected endocrine disorder
CPT/HCPCS: 99214; Q0091; G0463

== ENCOUNTER → 2024-07-02 | Outpatient (CLI) | payer BC, OTHER, SELFPAY ==
[2024-07-02 17:22] LABS: Follicle Stimulating Hormone 100.45 mIU/mL (See Note)
[2024-07-15 07:05] LABS: Albumin 4.5 g/dL (3.6-5.1); Estradiol, Free 0.05 pg/mL; Estradiol, Total 3 pg/mL; SHBG 72 nmol/L (17-124); Testosterone, Bioavailable 1.5 ng/dL (0.5-8.5); Testosterone, Free 0.7 pg/mL (0.2-5.0); Testosterone,Total 12 ng/dL (2-45)
== END | disposition home or self-care (01) ==
LOC: COPL 15:45
PROVIDERS: PCP Family Medicine; Referring Provider Obstetrics & Gynecology; Visit Provider Obstetrics & Gynecology
DX: N95.1 Menopausal and female climacteric states (principal)
CPT/HCPCS: 36415; 82040; 82670; 82681; 83001; 84270; 84403

== ENCOUNTER 2024-07-30 15:13 | Outpatient (AMB) | payer BC, OTHER, SELFPAY ==
[2024-07-30 15:34] VITALS: BP 131/70; PULSE 78; RESP 15; TEMP 36.7; O2SAT 96; BMI 27.6
--- NOTE | 2024-07-30 15:34 | GYNCLNT_ITS ---
Vital Signs 07/30/24 15:34 Height 1.63 m Height Method Stated Weight 73.255 kg Weight Measurement Method Standing Scale BMI 27.6 BP 131/70 H Blood Pressure Source Automatic Cuff Blood Pressure Location Right Upper Arm Position Sitting Respiration 15 Pulse 78 Pulse Source Monitor Temp 98.1 F Temp Source Oral Pulse Oximetry (%) 96 Oxygen Delivery Method Room Air Allergies/Home Meds Allergies & Medications Allergies No Known Allergies Allergy (Verified 07/30/24 15:35) Medication Reconciliation baclofen 20 mg tablet 20 mg PO BID multiple sclerosis #0 tabs 10/26/15 [History Confirmed 07/30/24] carbamazepine 200 mg tablet (Tegretol) 200 mg PO BID #0 tabs 10/26/15 [History Confirmed 07/30/24] fingolimod 0.5 mg capsule (Gilenya) 0.5 cap PO HS ##0 10/26/15 [History Confirmed 07/30/24] atorvastatin 20 mg tablet 20 mg PO QDAY 04/06/22 [History Confirmed 07/30/24] bupropion HCl 150 mg 24 hr tablet, extended release 150 mg PO QAM 04/06/22 [History Confirmed 07/30/24] bupropion HCl 300 mg 24 hr tablet, extended release 300 mg PO QAM 04/06/22 [History Confirmed 07/30/24] conj estrogen-medroxyprogesterone 0.3 mg-1.5 mg tablet (Prempro) 1 tab PO QDAY 04/06/22 [History Confirmed 07/30/24] ibuprofen 600 mg tablet 600 mg PO Q6H PRN pain #30 tabs 04/06/22 [Rx Confirmed 07/30/24] linaclotide 290 mcg capsule (Linzess) 290 mcg PO QDAY 04/06/22 [History Confirmed 07/30/24] oxybutynin chloride 5 mg tablet 5 mg PO BID 04/06/22 [History Confirmed 07/30/24] tamsulosin 0.4 mg capsule (Flomax) 0.4 mg PO QDAY #30 caps 04/06/22 [Rx Confirmed 07/30/24] estradiol 0.05 mg-norethindrone 0.25 mg/24 hr semiwkly transderm patch 1 patch transdermal .two times a week 30 days #8 ea 07/30/24 [Rx] Intake Visit Data Collection New Patient or Established: Established Patient (seen at [facility] within 3 years) Reason for Visit:: FOLLOW UP/ LAB RESULTS Seen by Clinical Staff ONLY (RN/MA): No Electronic Train Control Technician Required: No Do You Feel Safe at Home: Yes Authorities Contacted: N/A PCP or OBGYN visit in last 3 months: Yes Hx Now: No Are you currently on any form of Control: No Pain Present Currently: No Pain Scale Used: Salgado-Hunt/Numerical Pain scale:: 0 Smoking Status Smoking Status: Never smoker 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 1. Little interest or pleasure in doing things: not at all 2. Feeling down, depressed, or hopeless: not at all Total score: 0 PHQ-9 3. Trouble falling or staying asleep, or sleeping too much: Not at all 4. Feeling tired or having little energy: Not at all 5. Poor appetite or overeating: Not at all 6. Feeling bad about yourself - or that you are a failure or have let yourself or your family down: Not at all 7. Trouble concentrating on things, such as reading the newspaper or watching television: Not at all 8. Moving or speaking so slowly that other people could have noticed? - Or the opposite - being so fidgety or restless that you have been moving around a lot more than usual: not at all 9. Thoughts that you would be better off or of hurting yourself in some way: Not at all Total score: 0 Source: Developed by Drs. Jair Miles, Felicia Parsons, Truong Austin and colleagues, with an educational shannon from [employer]. Depression screen completed yes Social History Living Situation History Lives With: Family Housing: House Housing Other:: Pt lives w/ Tobacco History Smoking Status: Never smoker Alcohol History Alcohol Intake: Never Alcohol Intake Frequency: holidays/special occasions only Domestic Abuse History Do You Feel Safe at Home: Yes History of Present Illness HPI Narrative Patient reports experiencing hot flashes and night sweats, which have been significantly impacting her quality of life. She also mentions sleep disturbances, for which she has recently started taking low-dose Ambien for about 6 days. The patient expresses concerns about potential addiction to sleep medication. She discloses that she has been dealing with depression, which she attributes to the combination of her multiple sclerosis and menopausal symptoms. She describes this period as hard, indicating a significant impact on her overall well-being. She is a 54-year-old female with a history of multiple sclerosis, depression, and menopause. The patient has been under the care of Dr. Zhang for her multiple sclerosis management, and occasionally sees Dr. Rahman, a neurologist, for emergencies related to her condition. She presents for follow- up and review of lab results related to menopausal symptoms and urinary incontinence. The patient reports previous attempts to manage her sleep issues with over-the- counter supplements like SleepAgent from [employer] and melatonin, but found them ineffective. She expresses a desire to avoid weight gain, indicating that she has been fighting the weight and is concerned about potential side effects of hormone replacement therapy on her weight management efforts. She is currently taking low-dose Ambien for sleep (for about 6 days). She previously used SleepAgent from [employer] and has tried melatonin in the past, including gummies, but found it ineffective. The patient stays physically active and is monitoring her weight and diet. Review of Systems Review of Systems Systems Reviewed: All systems reviewed, normal except as documented Exam General General Appearance: alert, in no apparent distress and healthy appearing Head Head exam: atraumatic Neck Neck exam: Present normal inspection and trachea midline Chest Chest inspection: Present normal inspection and symmetric chest wall rise External exam: Present normal external exam; Absent tenderness Neuro Neurological exam: Present oriented X3 Psych Psychiatric exam: Present normal affect and normal mood Office Procedures OB Clinic LOC & Office Proc's Nursing/Assessment Patient Status: Established Patient OB Clinic Nursing Assessment: Medication Reconciliation, Update PMH in EMR and Vital Signs OB Clinic Coordination of Care: Complex Care and Chronic Disease 1-5, Consent,records obtained, informed consent, Education Simp Pt/Fam, Lab and Imaging orders, Results/Orders obtained and Staff clarify orders Established Patient Charge Established Patient Point Assignment: 105 Established Patient Point Charge: EP Level 3 (80-115) Assessment & Plan Diagnosis / Problem List (1) Vasomotor symptoms due to menopause: Status: Acute (2) Abnormal weight gain: Status: Acute (3) Encounter for screening for other suspected endocrine disorder: Status: Acute (4) Encounter for screening for malignant neoplasm of cervix: Status: Acute (5) Encounter for gynecological examination (general) (routine) without abnormal findings: Status: Acute (6) Other specified urinary incontinence: Status: Acute (7) Constipation, unspecified: Status: Acute (8) Other recurrent depressive disorders: Status: Acute Plan Menopause: - Lab results confirm well-established menopause: FSH 100.45, free estradiol 0.05, free testosterone 0.7. - Symptoms include hot flashes, night sweats, sleep disturbance, and mood changes. - Initiate hormone replacement therapy (HRT) with estrogen patch for 90 days. - Instruct patient on proper application and replacement schedule. - Follow-up appointment in 1 month to assess symptom improvement and adjust dosage if needed. - Order pelvic ultrasound. - Recommend transitioning from Ambien to melatonin 5 mg for sleep. - Provide instructions on proper timing and administration of melatonin. - Suggest alternating Ambien and melatonin to wean off Ambien. - Monitor weight and maintain physical activity during HRT. Urinary Incontinence: - Reassess symptoms at follow-up appointment in 1 month. - Evaluate improvement with initiation of hormone replacement therapy. Multiple Sclerosis: - Continue current MS management with established providers (Dr. Zhang at [facility], Dr. Rahman for emergencies). - Monitor for interactions between MS symptoms and menopausal symptoms or HRT. Depression: - Monitor mood changes with initiation of HRT. - Reassess depression symptoms at follow-up appointment in 1 month. Follow-up: - Appointment scheduled in 1 month to assess HRT effectiveness, urinary incontinence, and depression symptoms. - Adjust treatment plan as necessary based on symptom improvement and patient feedback.
== END 2024-07-30 15:44 | disposition home or self-care (01) ==
LOC: HODSOBC 15:13
PROVIDERS: PCP Obstetrics & Gynecology; Referring Provider Obstetrics & Gynecology; Supervising Provider Obstetrics & Gynecology; Visit Provider Obstetrics & Gynecology
DX: N95.1 Menopausal and female climacteric states (principal); R23.2 Flushing; R61 Generalized hyperhidrosis; G35 Multiple sclerosis; G47.9 Sleep disorder, unspecified; R63.5 Abnormal weight gain; Z68.27 Body mass index [BMI] 27.0-27.9, adult; N39.498 Other specified urinary incontinence; K59.00 Constipation, unspecified; F33.8 Other recurrent depressive disorders; Z79.899 Other long term (current) drug therapy
CPT/HCPCS: 99213; G0463

== ENCOUNTER → 2024-10-18 | Outpatient (CLI) | payer BC, OTHER, SELFPAY ==
[2024-10-18 15:42] LABS: Collection Type, Urine Clean Catch
[2024-10-18 16:56] LABS: Bacteria,Urine Rare; Bilirubin,Urine 1+ (Negative); Blood,Urine Negative (Negative); Calcium Oxalate Crystals,Urine 4+; Clarity,Urine Turbid (Clear/Hazy); Color,Urine Drk-Yellow (Lt Yel-Yel); Glucose, Urine Negative (Negative); Ketones,Urine 1+ (Negative); Leukocyte Esterase,Urine Positive (Negative); Nitrite,Urine Positive (Negative); PH,Urine 6.0 (5.0-7.0); Protein,Urine 1+ (Neg - Trace); RBC,Urine 8 /hpf (0-3); Specific Gravity,Urine 1.041 (1.001-1.035); Squamous Epithelial Cell,Urine 2 /hpf (0-5); Urobilinogen,Urine 2.0 mg/dL (0.0-1.0); WBC,Urine 70 /hpf (0-5)
== END | disposition home or self-care (01) ==
PROVIDERS: Referring Provider Registered Nurse; Visit Provider Registered Nurse
DX: N39.0 Urinary tract infection, site not specified (principal)
CPT/HCPCS: 81001; 87077; 87086; 87186

== ENCOUNTER → 2025-01-27 | Outpatient (CLI) | payer BC, OTHER, SELFPAY ==
[2025-01-27 11:05] LABS: Basophils # (Auto) 0.0 Thou/mm3 (0.0-0.2); Basophils % (Auto) 1 % (0-2.5); Eosinophils # (Auto) 0.1 Thou/mm3 (0.0-0.5); Eosinophils % (Auto) 2 % (0-10); Glucose Estimated Average 103 mg/dL (80-131); Hematocrit 41.3 % (36.0-46.0); Hemoglobin 13.5 g/dL (12.0-16.0); Hemoglobin A1C 5.2 % Hgb (4.8-6.0); Immature Granulocytes Auto 0.01 Thou/mm3 (0.00-0.00); Lymphocytes # (Auto) 0.3 Thou/mm3 (1.0-4.8); Lymphocytes % (Auto) 10 % (10-50); Mean Corpuscular HGB Conc 32.7 g/dl (31.0-37.0); Mean Corpuscular Hemoglobin 32.3 pg (25.0-35.0); Mean Corpuscular Volume 99 fL (80-100); Monocytes # (Auto) 0.4 Thou/mm3 (0.0-0.8); Monocytes % (Auto) 12 % (0-12); Neutrophils # (Auto) 2.6 Thou/mm3 (1.8-7.7); Neutrophils % (Auto) 76 % (37-80); Nucleated Red Blood Cell # 0.00 Thou/mm3 (0.00-0.00); Nucleated Red Blood Cell % 0 /100 WBC (0); Platelet Count 303 Thou/mm3 (140-440); RDW Standard Deviation 46.1 fL (36.4-46.3); Red Blood Count 4.18 Miln/mm3 (4.00-5.20); White Blood Count 3.4 Thou/mm3 (3.6-11.0)
[2025-01-27 11:26] LABS: Alanine Aminotransferase 34 U/L (10-49); Albumin, Serum 4.6 gm/dL (3.5-5.0); Albumin/Globulin Ratio 2.9 (1.2-2.2); Alkaline Phosphatase 89 U/L (46-116); Anion Gap 9 (7-16); Aspartate Amino Transferase 21 U/L (0-34); BUN/Creatinine Ratio 19 Ratio (12-20); Bilirubin,Total 0.3 mg/dL (0.3-1.2); Blood Urea Nitrogen 13 mg/dL (9-23); Calcium 8.9 mg/dL (8.3-10.6); Calcium (Corrected) 8.9 mg/dL (8.5-10.1); Carbon Dioxide 29.5 mMol/L (20.0-31.0); Chloride 109 mMol/L (98-107); Creatinine (Component) 0.7 mg/dL (0.6-1.3); Free T4 (Free Thyroxine) 1.32 ng/dL (0.89-1.76); Globulin 1.6 gm/dL (2.3-3.5); Glucose 94 mg/dL (74-106); Osmolality,Calculated 292 (275-295); Potassium 3.9 mMol/L (3.4-5.1); Sodium 147 mMol/L (136-145); Thyroid Stimulating Hormone 0.35 uIU/mL (0.55-4.78); Total Protein 6.2 gm/dL (5.7-8.2); eGFR > 60 See Note
[2025-02-03 07:04] LABS: Cortisol,total,LC/MS/MS* 11.8 mcg/dL
== END | disposition home or self-care (01) ==
PROVIDERS: PCP Family Medicine; Referring Provider Registered Nurse; Visit Provider Registered Nurse
DX: E03.9 Hypothyroidism, unspecified (principal); E66.9 Obesity, unspecified; N39.0 Urinary tract infection, site not specified
CPT/HCPCS: 36415; 80053; 82533; 83036; 84439; 84443; 85025; 87077; 87086; 87186